=== PATIENT | male | born 1995 | race Caucasian/White ===

== ENCOUNTER 2021-02-05 20:43 | Emergency (ER) | payer OTHER ==
[2021-02-05 23:00] LABS: HEMOGLOBIN 15.6 gm/dl (14.0-17.5); RED BLOOD COUNT 5.16 M/UL (4.20-5.50); WHITE BLOOD COUNT 12.7 K/UL (4.5-11.0)
[2021-02-05 23:23] LABS: BUN/CREATININE RATIO 9 (0-10)
[2021-02-06] MEDS ORDERED: PERCOCET 5/325 T1 EA PO (00:52)
[2021-02-06] MEDS ORDERED: FLAGYL500 MG PO (00:52)
[2021-02-06] MEDS ORDERED: LEVOFLOXACIN500 MG PO (00:52)
== END 2021-02-06 01:07 | disposition home or self-care (01) ==
LOC: ER1 20:43
PROVIDERS: Physician Assistant
DX: R30.0 Dysuria (principal); R10.30 Lower abdominal pain, unspecified; I10 Essential (primary) hypertension; E78.00 Pure hypercholesterolemia, unspecified; F17.200 Nicotine dependence, unspecified, uncomplicated; Z88.6 Allergy status to analgesic agent; Z90.89 Acquired absence of other organs
CPT/HCPCS: 80053; 81001; 85025; 87086; 99284